=== PATIENT | male | born 1985 | race Caucasian/White ===

== ENCOUNTER 2017-06-08 12:39 | Day surgery (SDC) | payer MEDICAID ==
[~2017-06-08] VITALS: Ht 190.5 cm; Wt 62.5 kg
[2017-06-08] MEDS ORDERED: OMEPRAZOLE (14:14)
[2017-06-08] MEDS ORDERED: [UNRECOGNIZED DRUG - OTHER] (14:14)
[2017-06-08] MEDS ORDERED: DOCUSATE (14:14)
[2017-06-08] MEDS ORDERED: MIRALAX (14:14)
[2017-06-08 14:59] VITALS: BP 114/71; PULSE 57; RESP 20
[2017-06-08] MEDS ORDERED: PROPOFOL 40 ML ONE (15:51)
[2017-06-08] MEDS ORDERED: PROPOFOL 20 ML ONE (16:22)
--- NOTE | 2017-06-08 16:26 | OPPN ---
Date/Time of Note Date/Time of Note DATE: 06/08/17 TIME: 16:24 Operative Report Preoperative Diagnosis Abdominal pain Change in bowel habit Postoperative Diagnosis Hiatal hernia Gastroesophageal reflux disease Gastritis with erosions Internal hemorrhoids Operation/Procedure Performed Esophagogastroduodenoscopy and biopsy Colonoscopy Provider: CARROLL GOMES MD Anesthesia Type: MAC Estimated blood loss: none Transfusion Required: no Specimens Gastric mucosal biopsy Grafts/Implants: none Complications: no CARROLL GOMES MD Jun 08, 2017 16:26
[2017-06-08 16:50] VITALS: BP 132/60; PULSE 64; RESP 12
--- NOTE | 2017-06-08 17:53 | GILP ---
DATE OF PROCEDURE: 06/08/2017 PROCEDURE PERFORMED: 1. Esophagogastroduodenoscopy and biopsy. 2. Colonoscopy. SURGEON: Mine Shaw MD PREOPERATIVE DIAGNOSES: 1. Abdominal pain. 2. Change in the bowel habits. 3. Weight loss. POSTOPERATIVE DIAGNOSES: 1. Hiatal hernia. 2. Gastroesophageal reflux disease. 3. Gastritis with erosions. 4. Gastric mucosal biopsies were taken for Helicobacter pylori test. 5. Colonoscopy all the way to the cecum. 6. Internal hemorrhoids. INDICATION: Mr. Gulshan Bustillo is a 32-year-old male patient who had upper and lower abdominal pain not responding to therapy. The patient also noticed change in the bowel habits. He had weight loss. The patient was positive for HIV. He was scheduled for endoscopy and colonoscopy for further evaluation. The procedures and possible complications were well explained to the patient. He understood and consented to the procedure. DESCRIPTION OF PROCEDURE: Under influence of anesthesia, the gastroscope was carefully introduced into the esophagus. Under direct vision, it was advanced to the stomach, into the pylorus, into the duodenal bulb and descending duodenum. Findings esophagus, the patient had hiatal hernia and gastroesophageal reflux disease. Stomach, he had gastritis with erosions. Gastric mucosal biopsies were taken for Helicobacter pylori test. Duodenum was normal. The colonoscope was carefully introduced in the rectum. Under direct vision, it was advanced all the way to the cecum. Findings, the patient had internal hemorrhoids. No colitis or neoplasm was identified. He tolerated the procedures very well. There was no complication from the procedures. At the end of procedure, he was awake with stable vital signs. He was discharged home in care of his family. IMPRESSION: Please see postop diagnoses. PLAN: 1. Nexium 40 mg by mouth twice a day for 14 days. 2. Doxycycline 100 mg by mouth twice day for 14 days. 3. Flagyl 500 mg by mouth twice a day for 14 days. 4. Pepto-Bismol 2 tablets by mouth 4 times a day for 14 days. 5. Linzess 145 mcg by mouth daily a.m. for constipation. Dictated By: MD JESSIKA Rao/hamzah/randi /Document#: [id number]
== END 2017-06-08 17:21 | disposition home or self-care (01) ==
LOC: GIL 12:39
PROVIDERS: ATTEND Internal Medicine Gastroenterology
DX: R10.10 Upper abdominal pain, unspecified (principal); R10.30 Lower abdominal pain, unspecified; R63.4 Abnormal weight loss; Z68.1 Body mass index [BMI] 19.9 or less, adult; K44.9 Diaphragmatic hernia without obstruction or gangrene; K21.9 Gastro-esophageal reflux disease without esophagitis; K29.70 Gastritis, unspecified, without bleeding; K25.9 Gastric ulcer, unspecified as acute or chronic, without hemorrhage or perforation; K64.8 Other hemorrhoids; J45.909 Unspecified asthma, uncomplicated; F12.90 Cannabis use, unspecified, uncomplicated
CPT/HCPCS: 43239; 45378; 87081; Z7610